=== PATIENT | male | born 1940 | race Caucasian/White ===

== ENCOUNTER 2017-10-13 12:08 | Day surgery (SDC) | payer MEDICARE ==
[~2017-10-13 12:08] MED LIST: APIX5TAB PO; ENAL10TA7 PO; LIPI80TA16 PO
[2017-10-13 12:32] VITALS: BP 140/81; PULSE 90; RESP 20; TEMP 98; O2SAT 95
[2017-10-13] MEDS ORDERED: ENAL10TA7 PO (12:38)
[2017-10-13] MEDS ORDERED: LIPI80TA PO (12:38)
[2017-10-13] MEDS ORDERED: APIX5TAB PO (12:38)
[2017-10-13 13:35] VITALS: BP 140/81; PULSE 78; RESP 20; O2SAT 97
--- NOTE | 2017-10-13 13:40 | PD.RAD ---
Radiology Post PICC Prog Note Pre Procedure Diagnosis: (1) Leg swelling Post Procedure Diagnosis: (1) Leg swelling Procedure: Right PICC line replacement Procedure Date: Oct 13, 2017 Supervising Radiologist Venancio Anthony Proceduralist/Assist: Gloria Rajput, RT(R)(), Dale Lazar, RT(R) Device Side: Right [place]: 4 single lumen cm: 44 Catheter: Power PICC Plan of Activity Patient to Unit: ROPU Patient Condition: Good PICC line can be used immediately Venancio Anthony MD Oct 13, 2017 13:40
[2017-10-13] MEDS ORDERED: SODIUM CHLORIDE 0.9% FLUSH 10 ML FLUSH IVF PRN ×2 (13:45)
--- NOTE | 2017-10-13 15:49 | RADRPT ---
EXAM DATE/TIME: 10/13/2017 13:30 [place] COMPARISON: No previous studies available for comparison. INDICATIONS : Patient presents with leg swelling in need of peripheral intravenous line placement for medication ad ministration. MEDICAL HISTORY : AFIB Prostate cancer HTN SURGICAL HISTORY : Tonsillectomy Prostate sx ENCOUNTER: Initial ACUITY: 2 weeks PAIN SCORE: 0/10 LOCATION: N/A FLUORO TIME: 0.2 minutes IMAGE SERIES: 1 ACCESS: Right basilic vein MEDICATION(S): 1.) 200 units Heparin IV DEVICE(S): 1.) 4 Nepali single lumen 44 cm Xcela Power PICC PROCEDURE : 1. Ultrasound guidance for venous catheterization. 2. Fluoroscopic guidance. 3. Ultrasound & fluoroscopic guided central venous Power PICC line placement. The risks, benefits and alternatives to the procedure were explained and verbal and written consent w as obtained. The site was prepped in sterile fashion. Full sterile technique was used, including ca p, mask, sterile gloves and gown and a large sterile sheet. Hand hygiene and 2% chlorhexidine prep w as utilized per protocol for cutaneous antisepsis with appropriate dry time for site. Sterile gel a nd sterile probe cover were utilized for ultrasound guidance. The skin and subcutaneous tissues wer e infiltrated with local anesthetic solution. Under direct ultrasound guidance, a suitable vein was accessed and a measuring guidewire was introduc ed and positioned in the central venous system. The ultrasound images depicting access guidance were saved and stored to PACS for permanent record. A Power Injectable PICC line was cut to prescribed length and introduced, positioned with tip at the cavoatrial junction level. The line was flushed and secured per protocol. CONCLUSION: 1. Uncomplicated central venous Power PICC line placement. 2. The PICC line can be used immediately. Venancio Anthony MD on October 13, 2017 at 15:47 Board Certified Radiologist. This report was verified electronically.
[2017-10-14] MEDS ORDERED: SODIUM CHLORIDE 0.9% FLUSH 10 ML FLUSH IVF SCH (09:00)
== END 2017-10-13 13:15 | disposition home or self-care (01) ==
LOC: HROP 12:08 → HRIP 12:10 → HROP 13:15
PROVIDERS: ATTEND Surgery Vascular Surgery
DX: R22.42 Localized swelling, mass and lump, left lower limb (principal); M79.672 Pain in left foot; I48.91 Unspecified atrial fibrillation; I10 Essential (primary) hypertension; Z85.46 Personal history of malignant neoplasm of prostate
CPT/HCPCS: 36569; 76937; 77001; C1751; J1642